=== PATIENT | male | born 1990 | race Caucasian/White ===

== ENCOUNTER → 2020-02-05 13:54 | Outpatient (CLI) | payer BC, SELFPAY ==
[2020-02-07 13:59] LABS: Covid-19 Nasal PCR Sendout Lex Not Detected
== END ==
PROVIDERS: Visit Provider Nurse Practitioner Family
DX: Z03.818 Encounter for observation for suspected exposure to other biological agents ruled out (principal); R05 Cough; R52 Pain, unspecified
CPT/HCPCS: U0004

== ENCOUNTER → 2022-07-07 13:50 | Outpatient (CLI) | payer BC, SELFPAY ==
[2022-07-07 14:38] LABS: Chloride 105 mmol/L (98-107); Potassium 4.9 mmoL/L (3.5-5.1); Sodium 142 mmol/L (136-145)
[2022-07-07 14:40] LABS: Blood Urea Nitrogen 11 mg/dl (9-20); Estimated Glomerular Filt Rate 100 ml/min (>60); GFR (African American) 121 ML/MIN (>60)
[2022-07-07 14:41] LABS: Alanine Aminotransferase 95 U/L (12-78); Albumin Level 4.5 g/dl (3.5-5.0); Albumin/Globulin Ratio 1.6 (1.1-1.8); Alkaline Phosphatase 86 U/L (38-126); Anion Gap 12.9 mEq/L (5-15); Aspartate Amino Transferase 63 U/L (17-59); Bilirubin,Total 0.6 mg/dl (0.2-1.3); Calcium 9.7 mg/dl (8.4-10.2); Carbon Dioxide 29 mmol/L (22.0-30.0); Chol/HDL Ratio 5.5 (1-3.5); Cholesterol 154 mg/dl (140-200); Globulin 2.9 g/dL (1.3-3.2); Glucose 102 mg/dl (74-100); HDL Cholesterol 28 mg/dl (40-60); Total Protein,Serum 7.4 g/dl (6.3-8.2); Triglycerides 181 mg/dl (30-150); VLDL Cholesterol 36 mg/dL (0-40)
[2022-07-07 14:48] LABS: Basophils # 0.1 K/mm3 (0-0.2); Basophils % 1.4 % (0.1-2.0); Eosinophils # 0.1 K/mm3 (0.0-0.4); Eosinophils % 1.2 % (0.1-12.0); Hematocrit 46.7 % (42.0-52.0); Hemoglobin 15.2 g/dL (14.1-18.0); Mean Corpuscular HGB Conc 32.5 g/dL (31.8-35.4); Mean Corpuscular Hemoglobin 28.5 pg (27.0-31.2); Mean Corpuscular Volume 87.8 fl (80-94); Mean Platelet Volume 9.1 fl (7.4-10.4); Monocytes # 0.3 K/mm3 (0.1-1.0); Monocytes % 4.4 % (1.7-9.3); Neutrophils # 3.4 K/mm3 (1.8-7.8); Platelet Count 117 K/mm3 (142-424); Red Blood Count 5.32 M/mm3 (4.60-6.20); Red Cell Distribution Width 14.5 % (11.5-17.5); White Blood Count 5.8 K/mm3 (4.8-10.8)
[2022-07-07 14:52] LABS: Hemoglobin A1C 6.2 % (4.0-6.0)
[2022-07-07 14:53] LABS: Direct LDL Cholesterol 92.84 mg/dL (100-129)
== END ==
PROVIDERS: PCP Nurse Practitioner Family; Visit Provider Nurse Practitioner Family
DX: K76.0 Fatty (change of) liver, not elsewhere classified (principal)
CPT/HCPCS: 36415; 80053; 80061; 83036; 85025

== ENCOUNTER 2023-11-17 10:22 | Outpatient (CLI) | payer BC, SELFPAY ==
--- NOTE | 2023-11-17 | XR_ITS ---
PROCEDURE INFORMATION: Exam: XR Left Clavicle, Complete Exam date and time: 11/17/2023 10:38 AM Age: 33 years old Clinical indication: Pain; Shoulder and other: Clavicle; Left TECHNIQUE: Imaging protocol: Radiologic exam of the left clavicle. Complete exam. Views: Any number of views. COMPARISON: CR XR CHEST 2V 10/19/2023 10:35 FINDINGS: Bones/joints: Normal. Lungs: The left lung apex is unremarkable. Soft tissues: Normal. IMPRESSION: Normal study
--- NOTE | 2023-11-17 | XR_ITS ---
PROCEDURE INFORMATION: Exam: XR Cervical Spine Exam date and time: 11/17/2023 10:44 AM Age: 33 years old Clinical indication: Neck pain TECHNIQUE: Imaging protocol: Radiologic exam of the cervical spine. Views: 4 or 5 views. COMPARISON: CR XR SHOULDER LT MIN 2V 10/19/2023 10:40 FINDINGS: Bones/joints: Normal anatomic alignment of the cervical spine. The cervical intervertebral disc spaces are uniform. No significant degenerative changes are noted. No bony encroachment upon the neural foramina. Soft tissues: The prevertebral soft tissues are unremarkable. IMPRESSION: Normal study
--- NOTE | 2023-11-17 | XR_ITS ---
PROCEDURE INFORMATION: Exam: XR Left Shoulder Exam date and time: 11/17/2023 10:40 AM Age: 33 years old Clinical indication: Pain; Shoulder and other: Clavicle; Left TECHNIQUE: Imaging protocol: Radiologic exam of the left shoulder. Views: 2 or more views. COMPARISON: CR XR CLAVICLE LT 10/19/2023 10:38 FINDINGS: Bones/joints: Normal. Soft tissues: Normal. IMPRESSION: No acute findings.
--- NOTE | 2023-11-17 | XR_ITS ---
PROCEDURE INFORMATION: Exam: XR Chest Exam date and time: 11/17/2023 10:35 AM Age: 33 years old Clinical indication: Pain; Left-sided TECHNIQUE: Imaging protocol: Radiologic exam of the chest. Views: 2 views. COMPARISON: No relevant prior studies available. FINDINGS: Lungs: There are left basilar infiltrates concerning for pneumonia Pleural spaces: Unremarkable. No pleural effusion. No pneumothorax. Heart/Mediastinum: Unremarkable. No cardiomegaly. Bones/joints: Unremarkable. IMPRESSION: Left basilar infiltrates concerning for pneumonia
== END 2023-11-17 23:59 | disposition home or self-care (01) ==
LOC: RAD 10:25
PROVIDERS: PCP Internal Medicine Adolescent Medicine; Visit Provider Internal Medicine Adolescent Medicine
DX: M54.12 Radiculopathy, cervical region (principal); M89.8X1 Other specified disorders of bone, shoulder; M25.512 Pain in left shoulder; R05.2 Subacute cough
CPT/HCPCS: 71046; 72050; 73000; 73030

== ENCOUNTER 2023-11-24 11:03 | Outpatient (CLI) | payer BC, SELFPAY ==
[2023-11-24 11:18] LABS: Basophils # 0.1 K/mm3 (0-0.2); Basophils % 0.6 % (0.1-2.0); Eosinophils # 0.1 K/mm3 (0.0-0.4); Eosinophils % 1.6 % (0.1-12.0); Hematocrit 46.4 % (42.0-52.0); Hemoglobin 15.4 g/dL (14.1-18.0); Lymphocytes # 2.3 K/mm3 (0.7-4.5); Lymphocytes % 27.6 % (10-50); Mean Corpuscular HGB Conc 33.2 g/dL (31.8-35.4); Mean Corpuscular Hemoglobin 28.4 pg (27.0-31.2); Mean Corpuscular Volume 85.7 fl (80-94); Mean Platelet Volume 8.2 fl (7.4-10.4); Monocytes # 0.3 K/mm3 (0.1-1.0); Monocytes % 4.2 % (1.7-9.3); Neutrophils # 5.4 K/mm3 (1.8-7.8); Platelet Count 193 K/mm3 (142-424); Red Blood Count 5.42 M/mm3 (4.60-6.20); Red Cell Distribution Width 15.2 % (11.5-17.5); White Blood Count 8.2 K/mm3 (4.8-10.8)
[2023-11-24 12:10] LABS: Erythrocyte Sedimentation Rate 20 mm/hr (0-15)
[2023-11-24 12:38] LABS: Alanine Aminotransferase 62 U/L (12-78); Albumin Level 4.5 g/dl (3.5-5.0); Albumin/Globulin Ratio 1.3 (1.1-1.8); Alkaline Phosphatase 88 U/L (38-126); Anion Gap 16.5 mEq/L (5-15); Aspartate Amino Transferase 44 U/L (17-59); Bilirubin,Total 0.8 mg/dl (0.2-1.3); Blood Urea Nitrogen 16 mg/dl (9-20); Calcium 9.9 mg/dl (8.4-10.2); Carbon Dioxide 24 mmol/L (22.0-30.0); Chloride 104 mmol/L (98-107); Estimated Glomerular Filt Rate 98 ml/min (>60); GFR (African American) 119 ML/MIN (>60); Globulin 3.4 g/dL (1.3-3.2); Glucose 93 mg/dl (74-100); Potassium 4.5 mmoL/L (3.5-5.1); Sodium 140 mmol/L (136-145); Total Protein,Serum 7.9 g/dl (6.3-8.2)
== END 2023-11-24 23:59 | disposition home or self-care (01) ==
LOC: LAB 11:04
PROVIDERS: PCP Internal Medicine Adolescent Medicine; Visit Provider Nurse Practitioner Family
DX: M79.674 Pain in right toe(s) (principal)
CPT/HCPCS: 36415; 80053; 84550; 85025; 85651

== ENCOUNTER → 2025-06-08 07:56 | Outpatient (CLI) | payer BC, SELFPAY ==
--- OUTSIDE RECORDS SUMMARY | 2025-06-08 07:59 | XMS_ITS | Data Portability ---
Author Organization [facility]O Eliz[place]de [place] Address [address] [facility] [address] [place] [address] Care Team Providers Care Chief Chemist Name Role Phone BERKLEY VU Referring Provider [phone] FLORIN MCCONNELL Primary Care Provider Assessment No assessment recorded. Plan of Treatment Reminders Order Date Submit Date Provider Last Modified By Organization Details Last Modified Time Details Appointments RECHECK 2024 03:15P M URI SAWYER MD Not available Not available Not available Lab urinalysi s panel, auto [email or web address] [facility], [address] [place] [address], [address], [place], [address], 08/09/2024 14:33:54 testoster one, total, serum 2024 025 [email or web address] [facility], [address] [place] [address], [phone], 08/09/2024 14:33:54 testoster one, free, serum 2024 025 YOAN [facility], [address] [place] [address], [phone], 08/14/2024 08:12:39 lh (luteiniz ing hormone), serum [address] [facility], [address] [place] [address], [phone], 08/09/2024 14:33:54 FSH (follicle -stimulat ing hormone), serum [address] [facility], [address] [place] [address], [phone], 08/09/2024 14:33:54 prolactin , serum [address] [facility], [address] [place] [address], [phone], 08/09/2024 14:33:54 Referral None recorded. Procedures None recorded. Surgeries None recorded. Imaging None recorded. Medication Orders Xyosted 75 mg/0.5 mL subcutane ous auto-inje ctor 2024 025 [facility] [address] , [address] [place] [address] [place], [address], 09/15/2024 17:26:31 Patient TargetsNo targets recorded. Patient InstructionsNo instructions recorded. Reason for Referral None Reported. Results Created Date Observation Date Name Description Value Unit Range Abnormal Flag Note LastModifiedBy Organization Detail LastModifiedTime 08/08/1908/08/2024 LUTEN IZING HORMO NE lutenizing hormone 2.5 m[IU] /mL 1.7-8. 6 normal LH EXPEC TAMIKA VALUE S WOMEN : FOLLI CULAR PHASE 2.4-1 2.6 mIU/m L OVULA TION PHASE 14.0- 95.6 mIU/m L LUTEA L PHASE 1.0-1 1.4 mIU/m L POSTM ENOPA USE 7.7-5 8.5 mIU/m L . Not Available [facility] [address] [place] [address], [phone], 08/08/2024 17:18:55 08/08/19 25 08/08/2024 TESTO STERO NE, TOTAL testosterone , total 261 NG/dL 249-83 6 normal Refer ence range is for age 20-49 years . Not Available [facility] [address] [place], [address], 08/08/2024 17:18:56 08/08/19 25 08/08/2024 FOLLI RAFAEL STIM. HORMO NE follicle stim. hormone 1.9 m[IU] /mL 1.5-12 .4 normal FSH EXPEC TAMIKA VALUE S FEMAL ES: FOLLI CULAR PHASE : 3.5 - 12.5 MIU/M L OVULA TION PHASE : 4.7 - 21.5 MIU/M L LUTEA L PHASE : 1.7 - 7.7 MIU/M L POST MENOP AUSE: 25.8 - 134.8 MIU/M L . Not Available [facility] [place], [address], 08/08/2024 17:18:57 08/08/19 25 08/08/2024 PROLA CTIN prolactin 7.50 NG/mL 4.04-1 5.20 normal Not Available [facility] [address] [place] [address], [phone], 08/08/2024 17:18:58 08/08/19 25 08/14/2024 TESTO STERO NE, FREE testosterone , free 63.1 pg/mL 46.0-2 24.0 normal MDF med fusio n [address] [facility] [address] [facility] [address] [phone] [facility] aureliano Jaramillo MD, PhD Not Available [facility] [place], [address], 08/14/2024 08:12:39 08/08/19 25 08/08/2024 urina lysis panel , auto Unknown Analyte Clean Catch Not Available [facility] [address] [place] [address] [address], [place], [address], 08/08/2024 11:22:17 08/08/19 25 08/08/2024 urina lysis panel , auto Unknown Analyte Yellow Not Available [facility] [address], [place], [address], 08/08/2024 11:22:17 08/08/19 25 08/08/2024 urina lysis panel , auto Unknown Analyte Clear Not Available [facility] [address], [address], 08/08/2024 11:22:17 08/08/19 25 08/08/2024 urina lysis panel , auto Unknown Analyte 1.025 Not Available [facility] [address], [place], [address], 08/08/2024 11:22:17 08/08/19 25 08/08/2024 urina lysis panel , auto Unknown Analyte 1.003- 1.035 Not Available [facility] [address], [address], 08/08/2024 11:22:17 08/08/19 25 08/08/2024 urina lysis panel , auto Unknown Analyte 5.0 Not Available [facility] [address], [place], [address], 08/08/2024 11:22:17 08/08/19 25 08/08/2024 urina lysis panel , auto Unknown Analyte 5.0-8. 0 Not Available [facility] [address], [place], [address], 08/08/2024 11:22:17 08/08/19 25 08/08/2024 urina lysis panel , auto Unknown Analyte 25 Facundo/ul Trace Not Available [facility] [address], [place], [address], 08/08/2024 11:22:17 08/08/19 25 08/08/2024 urina lysis panel , auto Unknown Analyte Negati ve Not Available [facility] [address], [place], [address], 08/08/2024 11:22:17 08/08/19 25 08/08/2024 urina lysis panel , auto Unknown Analyte Negati ve Not Available [facility] [address], [place], [address], 08/08/2024 11:22:17 08/08/19 25 08/08/2024 urina lysis panel , auto Unknown Analyte Negati ve Not Available [facility] [address], [place], [address], 08/08/2024 11:22:17 08/08/19 25 08/08/2024 urina lysis panel , auto Unknown Analyte Trace Not Available [facility] [address], [place], [address], 08/08/2024 11:22:17 08/08/19 25 08/08/2024 urina lysis panel , auto Unknown Analyte Negati ve Not Available [facility] [address], [place], [address], 08/08/2024 11:22:17 08/08/19 25 08/08/2024 urina lysis panel , auto Unknown Analyte Normal Not Available [facility] [address], [place], [address], 08/08/2024 11:22:17 08/08/19 25 08/08/2024 urina lysis panel , auto Unknown Analyte Normal Not Available [facility] [address], [place], [address], 08/08/2024 11:22:17 08/08/19 25 08/08/2024 urina lysis panel , auto Unknown Analyte Negati ve Not Available [facility] [address], [place], [address], 08/08/2024 11:22:17 08/08/19 25 08/08/2024 urina lysis panel , auto Unknown Analyte Negati ve Not Available [facility] [address], [place], [address], 08/08/2024 11:22:17 08/08/19 25 08/08/2024 urina lysis panel , auto Unknown Analyte Normal Not Available [facility] [address], [place], [address], 08/08/2024 11:22:17 08/08/19 25 08/08/2024 urina lysis panel , auto Unknown Analyte Normal 1 mg/dl Not Available [facility] [address], [place], [address], 08/08/2024 11:22:17 08/08/19 25 08/08/2024 urina lysis panel , auto Unknown Analyte 1 mg/dl (+) Not Available [facility] [address] [place] [address], [phone], 08/08/2024 11:22:17 08/08/19 25 08/08/2024 urina lysis panel , auto Unknown Analyte Negati ve Not Available [facility] [address] [place] [address], [phone], 08/08/2024 11:22:17 08/08/19 25 08/08/2024 urina lysis panel , auto Unknown Analyte Negati ve Not Available [facility] [address], [place], [address], 08/08/2024 11:22:17 08/08/19 25 08/08/2024 urina lysis panel , auto Unknown Analyte Negati ve Not Available [facility] [address] [place] [address], [phone], 08/08/2024 11:22:17 Result Notes None recorded. Problems No Known Problems Procedures Surgical History Date Name Laterality Status Provider Name and Address Organization Details Recorded Time reconstruction of anterior cruciate ligament of knee joint completed Aixa Caldera [facility] 08/08/2024 11:21:34 operation on testis completed Aixa lezama [facility] 08/08/2024 11:21:50 Imaging Results None recorded. Procedure Notes None recorded. Medical Equipment None Reported. Allergies Allergen ID Allergen Name Allergen Category Reaction Reaction Severity Criticality Documentation Date Start Date Code Code System Note Provider Name and Address Organization Details Recorded Time [id number] Ceftin medicatio n Not available Not available Not available 08/08/2024 6 [facility] 10[facility]47[facility]35 [id number] Ceclor medicatio n Not available Not available Not available 08/08/2024 5 [facility] 10:47[facility]44 Medications Name Sig Start Date Stop Date Status Note LastModified by Organization Details LastModified Time buspirone 5 mg tablet Take 1 tablet twice a day by oral route. active Not Available Not Available No t Available esomeprazole magnesium 40 mg capsule,ava yed release Take 1 capsule every day by oral route. active Not Available Not Available No t Available bupropion HCl 150 mg tablet,12 hr sustained-re lease(smokin g deterrent) Take 1 tablet twice a day by oral route. active Not Available Not Available No t Available Xyosted 75 mg/0.5 mL subcutaneous auto-injecto r INJECT 75 MG SUBCUTANEOU SLY ONCE A WEEK DIRECTED 2024 active Not Available Not Available Not Avai lable Vitals Date Recorded Body height Body mass index (BMI) Body weight Provider Name and Address Organization Details Last Updated DateTime 08/08/2024 180.34 cm 33.5 kg/m2 018820.17 g Aixa Caldera [facility] 08/08/2024 10:38:53 Date Recorded Body height Body mass index (BMI) Body weight Provider Name and Address Organization Details Last Updated DateTime 09/15/2024 180.34 cm 32.8 kg/m2 024558.21 g Kerrie Mcwilliams [facility] 09/15/2024 16:08:37 Social History Question Answer Notes LastModified by [employer] Details LastModified Time Tobacco Smoking Status Never Smoker Aixa Caldera [facility] 08/08/2024 11:21:22 What Was The Date Of Your Most Recent Tobacco Screening? 09/15/2024 [email or web address] Information not available 09/15/2024 What Is Your Relationship Status? Information not available 08/08/2024 Has Tobacco Cessation Counseling Been Provided? No Information not available 08/08/2024 Sex: Unknown Functional Status Question Answer Note LastModified by Tyrosizat ion Details LastModified Time How many times per week do you consume alcohol? Less than 1 time per week [email or web address] Information not available 08/08/2024 Do you use any illicit or recreational drugs? No [email or web address] Information not available 08/08/2024 Do you or have you ever used any other forms of tobacco or nicotine? No Information not available 08/08/2024 What is your level of alcohol consumption? Occasional scotch [email or web address] Information not available 08/08/2024 Are you currently employed? 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 Family History Relationship Description Onset Age of this Age Resolved Age Notes LastModified by Organization Details LastModified Time Father Family history of malignant neoplasm [email or web address] Not available 2024 10:48:34 Mother Diabetes mellitus [email or web address] Not available 2024 10:48:54 Medical History Condition Response Depression Y Anxiety Disorder Y Liver Disease Y Allergies/Hayfever Y Past Encounters Encounter ID Performer Location Encounter Start Date Encounter Closed Date Diagnosis/Indication Diagnosis SNOMED-CT Code Diagnosis ICD10 Code Diagnosis IMO Codes Diagnosis Note [id number] URI SAWYER MD [facility] [address] [place] [address] 08/08/2024 09:10:00 08/08/2024 10:20:05 Male hypogonadism 63084000 E29.1 We will await his laboratory results and then address potential options. [id number] MD NIURKA TOMAS [facility] [address] [place] [address] 09/15/2024 16:05:39 09/16/2024 04:13:18 Male hypogonadism [id number] E29.1 We will await his laboratory results and then address potential options. Health Concerns Section Related Observation LastModified by Organization Detai ls LastModified Time None Recorded Concern Status LastModified by Organization Details LastModified Time None Recorded Advance Directives Directive None Recorded Payers Insurance Date Sequence Insurance Name Policy Number Policy Harden Covered Member ID Harden Member ID Guarantor Name 05/10/2025 1 [employer] [id number] A Daniel Caraballo [id number] Daniel Caraballo Notes Date Note Type Note Provider Name and Address Organization Details Recorded Time 08/08/2024 text/html History of Present IllnessHow long has patient had this problem? Unsure Where is the problem located? Testosterone What signs or symptoms is patient having? Low testosterone Does anything make the problem better or worse? No Is patient taking any medications to treat this problem? No Does the problem interfere with normal daily function? No How long does the problem last? All the time Patient Current Weight 240 pounds Patient Height 5 feet 11 inches Do you have Hypertension? No Problem Rating On a scale of 1-10, (10 is the worst), select the number that best describes your problem - 5 Who is your PCP (primary care)? Florin Mcconnell Imported from [employer] on 08/08/2024Patient is here for initial visit regarding hypogonadism. He states has been present for several years. This was first noticed 4 to 5 years ago. At that time he was found to have low levels. He and his at that time were having difficulty conceiving a child and he had a semen analysis which reportedly was normal. He never started any supplement due to concern of affecting his fertility. He is now and would like to address his hypogonadism. In May of last year his total testosterone was 310 at [facility]. We discussed additional evaluation with repeat testosterone level as well as FSH LH and prolactin levels. He states that at this point he has no concerns regarding fertility and would like to feel better. He continues to have issues with low energy/fatigue and somnolence. URI SAWYER MD [facility] [place], [address], [facility] 08/09/2024 13:44:44 09/15/2024 text/html Patient is here in follow-up of hypogonadism. His levels were very low both free and total barely within normal range. Pituitary factors were acceptable. We discussed supplemental therapy and he would like to proceed. We will try Xyosted 75 mg weekly with follow-up in 2 months URI SAWYER MD [facility] [place], [address], [facility] 09/15/2024 17:27:38
--- OUTSIDE RECORDS SUMMARY | 2025-06-08 07:59 | XMS_ITS | Clinical Summary ---
Author Organization [facility] Address [address] [place] [address] Phone [email or web address] [email or web address] Care Team Providers Care Cement Or Concrete Finishing Supervisor Name Role Phone Unavailable Primary Care Provider Unavailabl e Allergies Active Allergy Reactions Criticality Noted Date Comments Amoxicillin Rash Medium 11/30/2023 Cefaclor Rash Medium 11/30/2023 Cephalosporins Rash Low 05/21/2020 Penicillin G Rash Medium 11/30/2023 Penicillins Rash Low 05/21/2020 Medications pantoprazole (PROTONIX) 40 MG EC tablet TAKE 1 TABLET BY MOUTH TWICE DAILY FOR 90 DAYS 06/30/2020 Active loratadine (CLARITIN) 10 MG tablet Take 10 mg by mouth 1 (one) time each day. OTC Active esomeprazole (NexIUM) [address] capsule Take 40 mg by mouth 1 (one) time each day. 08/02/2022 Active Active Problems Problem Noted Date Diagnosed Date Return to work evaluation 11/01/2022 Health examination of defined subpopulation 01/2011 Overview (12/12/2017): Social History Tobacco Use Types Packs/Day Years Used Date Smoking Tobacco: Never Smokeless Tobacco: Never Tobacco Cessation:Counseling Given: Not Answered Alcohol Use Standard Drinks/Week Comments Never 0 (1 standard drink = 0.6 oz pur e alcohol) Intimate Partner Violence Answer Date R ecorded Insults You Not on file 10/26/2020 Threatens You Not on file 10/26/2020 Screams at You Not on file 10/26/2020 Physically Hurt Not on file 10/26/2020 Intimate Partner Violence Score Not on file 10/26/2020 Alcohol Use Answer Date Recorded Alcohol Use Status Never 02/27/2025 Depression Answer Date Recorded PHQ Total Score 0 02/27/2025 Stress Answer Date Recorded Stress in your Life Not on file 05/19/2024 Dealing with Stress 3 05/19/2024 Sex and Gender Information Value Date Recorded Sex Assigned at Not on file Legal Sex Male 8:42 AM CDT Gender Identity Not on file Sexual Orientation Not on file Last Filed Vital Signs Vital Sign Reading Time Taken Comments Blood Pressure 116/71 02/27/2025 3:29 PM EDT Pulse 91 02/27/2025 3:29 PM EDT Temperature 36.3 C (97.3 F) 11/30/2023 11:59 AM EDT Respiratory Rate 18 02/27/2025 3:29 PM EDT Oxygen Saturation 99% 02/27/2025 3:29 PM EDT Inhaled Oxygen Concentration - - Weight 115 kg (254 lb) 06/12/2016 4:02 PM MANAGER INFRASTRUCTURE Height 180.3 cm (5' 11 ) 06/12/2016 4:02 PM MANAGER INFRASTRUCTURE Body Mass Index 35.43 06/12/2016 4:02 PM MANAGER INFRASTRUCTURE Plan of Treatment Health Maintenance Due Date Last Done Comments Dental Cleaning/Exam 1992 HIV Screening 1992 Hepatitis C Screening 1992 HPV Immunization (1 - Male 3 -dose series) 2007 Annual Preventive Exam 2010 Hep B Infection Screening - Triple Screen 2010 Hepatitis A Immunization (1 of 2 - Risk 2-dose series) 2011 Hepatitis B Immunization (1 of 3 - 19+ 3-dose series) 2011 Tetanus Diphtheria and Pertu ssis Immunization (1 - Tdap) 2011 Covid-19 Immunization (2 - 2 - season) 2025 03/06/2021 Influenza Immunization (#1) 2025 HIB Immunization Aged Out No longer e ligible based on patient's age to complete this topic Pneumococcal Immunization Aged Out No longer eligible based on patient's age to complete this topic Polio Immunization Aged Out No longer eligible based on patient's age to complete this topic Varicella Immunization Aged Out No lo nger eligible based on patient's age to complete this topic Insurance OPT OUT NO COPAY NB
== END ==
LOC: SL 07:57
PROVIDERS: PCP Internal Medicine Adolescent Medicine; Visit Provider Nurse Practitioner Family
DX: G47.33 Obstructive sleep apnea (adult) (pediatric) (principal)
CPT/HCPCS: G0399

== ENCOUNTER 2025-06-30 15:13 | Outpatient (CLI) | payer BC, SELFPAY ==
--- OUTSIDE RECORDS SUMMARY | 2025-06-30 15:17 | XMS_ITS | Clinical Summary ---
Author Organization [employer] [facility] [employer] Address [address] [facility] [place] [address] Care Team Providers Care Director [employer] Data [employer] Name Role Phone Unavailable Primary Care Provider Unavailabl e Allergies Active Allergy Reactions Criticality Noted Date Comments Cephalosporins Rash Low 05/21/2020 Penicillins Rash Low 05/21/2020 Medications pantoprazole (PROTONIX) 40 MG tablet TAKE 1 TABLET BY MOUTH TWICE DAILY FOR 90 DAYS 06/30/2020 Active Social History Tobacco Use Types Packs/Day Years Used Date Smoking Tobacco: Never Assessed Sex and Gender Information Value Date Recorded Sex Assigned at Not on file Legal Sex Male 1:09 PM EDT Gender Identity Not on file Sexual Orientation Not on file Last Filed Vital Signs Vital Sign Reading Time Taken Comments Blood Pressure - - Pulse 92 03/17/2021 12:02 PM EDT Temperature 36.5 C (97.7 F) 03/17/2021 12:02 PM EDT Respiratory Rate - - Oxygen Saturation 97% 03/17/2021 12:02 PM EDT Inhaled Oxygen Concentration - - Weight - - Height - - Body Mass Index - - Plan of Treatment Not on file Medical Devices Not on file
--- OUTSIDE RECORDS SUMMARY | 2025-06-30 15:17 | XMS_ITS | Clinical Summary ---
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
[2025-06-30 15:49] LABS: Hematocrit 41.7 % (42.0-52.0); Hemoglobin 14.4 g/dL (14.1-18.0); Immature Granulocytes % 0.2 %; Mean Corpuscular HGB Conc 34.5 g/dL (31.8-35.4); Mean Corpuscular Hemoglobin 29.2 pg (27.0-31.2); Mean Corpuscular Volume 84.6 fl (80-94); Nucleated Red Blood Cells % 0 %; Platelet Count 102 K/mm3 (142-424); Red Blood Count 4.93 M/mm3 (4.60-6.20); Red Cell Distribution Width-SD 42.9 fL; White Blood Count 4.7 K/mm3 (4.8-10.8)
== END 2025-06-30 23:59 | disposition home or self-care (01) ==
LOC: LAB 15:14
PROVIDERS: PCP Internal Medicine Adolescent Medicine; Visit Provider Nurse Practitioner Family
DX: D69.6 Thrombocytopenia, unspecified (principal)
CPT/HCPCS: 36415; 85025